=== PATIENT | male | born 1955 | race Caucasian/White ===

== ENCOUNTER 2019-04-03 14:03 | Outpatient (CLI) | payer OTHER, SELFPAY ==
--- NOTE | ~2019-04-03 | US_ITS ---
EXAMINATION: US carotid duplex BI DATE: 04/03/2019 15:38 INDICATION: Transient cerebral ischemia. Cerebral atherosclerosis. TECHNIQUE: Grayscale, color Doppler, and pulsed Doppler images of the cervical carotid arteries were obtained. The degree of vessel stenosis is placed in one of the following categories: normal, <50%, 5 0-69%, >=70% but less than near-occlusion, near-occlusion, or total occlusion. Note that percent sten osis relative to normal distal artery lumen diameter is indirectly measured from velocity measurement s as described by Duane, et al. Radiology 2003; [id number]. COMPARISON: None. FINDINGS: Tachycardia with irregularly irregular rhythm suggestive of atrial fibrillation. RIGHT: The right common carotid artery (CCA) peak systolic velocity (PSV) is 59 cm/s. The right internal car otid artery (ICA) PSV is 54 cm/s. The right ICA end-diastolic velocity (EDV) is 24 cm/s. The right IC A/CCA PSV ratio is 0.9. Grayscale and color Doppler images yield an estimate of <50% diameter reducti on from plaque in the ICA. The external carotid artery (ECA) PSV is 102 cm/s. There is antegrade flow in the right vertebral artery. LEFT: The left CCA PSV is 72 cm/s. The left ICA PSV is 71 cm/s. The left ICA EDV is 24 cm/s. The left ICA/C CA PSV ratio is 1.0. Grayscale and color Doppler images yield an estimate of <50% diameter reduction from plaque in the ICA. The ECA PSV is 100 cm/s. There is antegrade flow in the left vertebral artery . IMPRESSION: 1. <50% stenosis in the right internal carotid artery. 2. <50% stenosis in the left internal carotid artery. 3. Tachycardia with irregularly irregular cardiac rhythm suggestive atrial fibrillation. Correlate wi th EKG. Reviewed, dictated and finalized at location A. OMS VERIFIER IMPRESSION: 1. <50% stenosis in the right internal carotid artery. 2. <50% stenosis in the left internal carotid artery. 3. Tachycardia with irregularly irregular cardiac rhythm suggestive atrial fibr illation. Correlate with EKG.
--- NOTE | ~2019-04-03 | CT_ITS ---
EXAMINATION: CT brain wo con EXAM DATE: 04/03/2019 14:25 INDICATION: Transient ischemic attack TECHNIQUE: Spiral CT of the head was performed without contrast. Axial, coronal and sagittal images were reviewed. The dose-length product (DLP) for this examination was 605.33 mGy-cm. The exposure w as tailored according to patient size, and iterative reconstruction (ASIR) was used as additional dos e reduction technique. Comparison is made to prior examination from 05/23/2013. FINDINGS: There is no acute intraparenchymal hemorrhage. No evidence of intraparenchymal brain mass lesion. No evidence of acute infarction. Please note that initial head CT has limited sensitivity f or small or acute infarctions. There is mild periventricular and subcortical hypodensity, nonspecific but probably related to small vessel ischemic disease. There is mild prominence of the sulci and v entricles related to cerebral atrophy. There is intracranial carotid arteriosclerosis. There are n o extra-axial collections. There is no mass effect or midline shift. The orbits are unremarkable. Soft tissue is unremarkable. The visualized sinuses and mastoid air cells are well aerated. IMPRESSION: 1. No acute intracranial findings. 2. Chronic age related findings. Reviewed, dictated and finalized at location A. 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
== END 2019-04-03 14:04 | disposition home or self-care (01) ==
LOC: ANHIMG 14:07
PROVIDERS: PCP Family Medicine; Visit Provider Family Medicine
DX: I65.23 Occlusion and stenosis of bilateral carotid arteries (principal)
CPT/HCPCS: 70450; 93880

== ENCOUNTER 2019-08-01 09:36 | Outpatient (CLI) | payer OTHER, SELFPAY ==
--- NOTE | ~2019-08-01 | US_ITS ---
EXAMINATION: US aorta [facility] DATE: 08/01/2019 10:23 INDICATION: Abdominal aortic aneurysm screening. TECHNIQUE: Grayscale, color Doppler, and pulsed Doppler images of the aorta and common iliac arteries were obtained. COMPARISON: CT abdomen and pelvis 06/22/2013 FINDINGS: The aorta is normal in caliber. The distal abdominal aorta is not visible, but was normal in caliber on the prior CT. The right common iliac artery is normal in caliber. The left common iliac artery is normal in caliber. IMPRESSION: 1. No abdominal aortic aneurysm. Reviewed, dictated and finalized at location A.
== END 2019-08-01 09:37 | disposition home or self-care (01) ==
PROVIDERS: PCP Family Medicine; Visit Provider Family Medicine
DX: Z13.6 Encounter for screening for cardiovascular disorders (principal); Z87.891 Personal history of nicotine dependence
CPT/HCPCS: 76706

== ENCOUNTER 2019-09-22 01:12 | Outpatient (CLI) | payer OTHER, SELFPAY ==
[2019-09-22 18:11] LABS: SARS-CoV-2 RNA PCR Negative
== END 2019-09-22 01:13 | disposition home or self-care (01) ==
LOC: ANHCOVIDDT 01:12
PROVIDERS: PCP Family Medicine; Visit Provider Internal Medicine Gastroenterology
DX: Z01.812 Encounter for preprocedural laboratory examination (principal); Z11.59 Encounter for screening for other viral diseases
CPT/HCPCS: 87635; C9803; U0003

== ENCOUNTER 2019-09-25 01:45 | Day surgery (SDC) | payer OTHER, SELFPAY ==
[2019-09-18 10:48] VITALS: BMI 37.5
[2019-09-25 12:57] VITALS: BP 130/101; PULSE 96; RESP 20; TEMP 35.9; O2SAT 99; BMI 37.7
[2019-09-25 13:28] LABS: Glucose Point of Care 191 (65-105)
[2019-09-25] MEDS: LACTATED RINGERS 1,000 ML 150 ML IV CONT (13:30)
--- NOTE | 2019-09-25 13:32 | WPDANESEPPF ---
Anes - Initial Pre Proc Eval Procedure: Operation Date: 09/25/19 14:00 Proposed Procedures p Screening Colonoscopy - Mello Mckee MD Date/Time: 09/25/19 13:32 Surgeon: Mello Mckee MD Pre Op Diagnosis: neoplasm screening Patient Data Age: 64 Gender: M Height: 5 ft 11 in Weight: 122.7 kg Last Vital Signs Temp 96.7 F L 09/25/19 12:57 Pulse 96 09/25/19 12:57 Resp 20 09/25/19 12:57 BP 130/101 H 09/25/19 12:57 Pulse Ox 99 09/25/19 12:57 Allergies Allergy/AdvReac Type Severity Reaction Status Date / Time No Known Allergies Allergy Verified 09/25/19 12:54 Home Medications Medication Instructions Recorded Confirmed Type lisinopril 30 mg tablet 30 mg PO DAILY #90 tablet 01/04/19 09/18/19 Rx metformin 500 mg tablet,extended 2,000 mg PO DAILY #360 tablet 01/04/19 09/18/19 Rx release 24 hr omeprazole 40 mg capsule,delayed 40 mg PO DAILY #90 cap 01/04/19 09/18/19 Rx release rivaroxaban 20 mg tablet 20 mg PO DAILY #30 tablet 01/04/19 09/18/19 Rx sildenafil 100 mg tablet 100 mg PO DAILY PRN 03/22/19 09/18/19 History chlorthalidone 25 mg tablet 12.5 mg PO DAILY #45 tablet 04/09/19 09/18/19 Rx diltiazem HCl 240 mg 240 mg PO DAILY #90 cap 04/09/19 09/18/19 Rx capsule,extended release 24 hr empagliflozin 25 mg tablet 25 mg PO DAILY #90 tablet 07/10/19 09/18/19 Rx peg 3350-electrolytes 236 240 ml PO Q10M #4000 ml 09/14/19 Rx gram-22.74 gram-6.74 gram-5.86 gram solution Laboratory Tests 09/25/19 13:25 POC Capillary Glucose 191 mg/dl H mg/dl (65-105) Patient hx anesthesia problems: none Family hx anesthesia problems: none PMFSH Past Medical History Medical History (Updated 09/25/19 @ 13:31 by Ray London MD) Afib Essential (primary) hypertension History of stroke with current residual effects Type 2 diabetes mellitus with hyperglycemia, without long-term current use of insulin Surgical History Surgical History (Updated 03/23/19 @ 10:26 by Dipak Dumont MD) H/O hemorrhoidectomy Status post hernia repair Social History Social History (Updated 07/24/19 @ 10:30 by Catalina Cornejo) Smoking packs per day: 0.5 Smoking cigarettes per day: 10.0 Years smoked: 20 Smoking pack-years: 10.00 Smoking status: Former smoker Tobacco type: cigarettes Second hand tobacco smoke exposure: No Smoking end date: 02/14/07 Alcohol intake: never Substance use: never Substance use type: does not use Gender identity (if verbalized by the patient): Male Anes - Eval Final PreProcedure Day of Procedure 09/25/19 13:32 Patient weight: obese Heart: irregular rhythm Lungs: clear to auscultation Airway: Mallampati scale class III Neurological: alert and oriented Last oral intake: >/= 8 hours ASA classification: IV Anesthetic plan: proceed Anesthesia type and monitoring: general GIVS and standard monitoring Informed Consent: The patient's anesthetic plan and its attendant risks and benefits were discussed with the patient/family/POA. Questions were solicited and answers provided to the satisfaction of the patient/family/POA.
--- NOTE | 2019-09-25 13:56 | PM.HPGS ---
History of Present Illness History of Present Illness Consent: Risks, benefits, and alternatives have been discussed and questions answered. Patient agrees to proceed with procedure. Chief complaint: neoplasm screening Narrative: Asad Hess is a 64 year old male with colon polyps in 2013 Review of Systems Constitutional: Constitutional: Denies headache(s) and Denies weakness Eyes: Eyes: Denies blurry vision ENT: Reports Normal hearing present, Denies headache(s) and Denies neck pain Cardiovascular: Cardiovascular: Denies chest pain and Denies dyspnea Respiratory: Respiratory: Denies dyspnea Gastrointestinal: Gastrointestinal: Reports no additional gastrointestinal complaints Genitourinary: Genitourinary: Denies dysuria Musculoskeletal: Musculoskeletal: Denies neck pain Integumentary/Breasts: Skin/Breast: Denies dry skin Neurologic: Reports Normal hearing present, Denies headache(s) and Denies weakness Psychiatric: Psychiatric: Denies anxiety Endocrine: Endocrine: Denies change in body appearance Hematologic/Lymphatic: Hematologic/Lymphatic: Denies easy bleeding Allergic/Immunologic: Allergic/Immunologic: Denies urticaria PMF Past Medical History Medical History (Updated 09/25/19 @ 13:57 by Mello Mckee MD) Adenomatous colon polyp Afib Essential (primary) hypertension History of stroke with current residual effects Type 2 diabetes mellitus with hyperglycemia, without long-term current use of insulin Surgical History Surgical History (Updated 03/23/19 @ 10:26 by Dipak Dumont MD) H/O hemorrhoidectomy Status post hernia repair Social History Social History (Updated 07/24/19 @ 10:30 by Catalina Cornejo) Smoking packs per day: 0.5 Smoking cigarettes per day: 10.0 Years smoked: 20 Smoking pack-years: 10.00 Smoking status: Former smoker Tobacco type: cigarettes Second hand tobacco smoke exposure: No Smoking end date: 02/14/07 Alcohol intake: never Substance use: never Substance use type: does not use Gender identity (if verbalized by the patient): Male Meds Home Medications and Allergies Home Medications Medication Instructions Recorded Confirmed Type lisinopril 30 mg tablet 30 mg PO DAILY #90 tablet 01/04/19 09/18/19 Rx metformin 500 mg tablet,extended 2,000 mg PO DAILY #360 tablet 01/04/19 09/18/19 Rx release 24 hr omeprazole 40 mg capsule,delayed 40 mg PO DAILY #90 cap 01/04/19 09/18/19 Rx release rivaroxaban 20 mg tablet 20 mg PO DAILY #30 tablet 01/04/19 09/18/19 Rx sildenafil 100 mg tablet 100 mg PO DAILY PRN 03/22/19 09/18/19 History chlorthalidone 25 mg tablet 12.5 mg PO DAILY #45 tablet 04/09/19 09/18/19 Rx diltiazem HCl 240 mg 240 mg PO DAILY #90 cap 04/09/19 09/18/19 Rx capsule,extended release 24 hr empagliflozin 25 mg tablet 25 mg PO DAILY #90 tablet 07/10/19 09/18/19 Rx peg 3350-electrolytes 236 240 ml PO Q10M #4000 ml 09/14/19 Rx gram-22.74 gram-6.74 gram-5.86 gram solution Allergies Allergy/AdvReac Type Severity Reaction Status Date / Time No Known Allergies Allergy Verified 09/25/19 12:54 Vital Signs Vital Signs - 24 hr 09/25/19 12:57 Temperature 96.7 F L Pulse Rate 96 Respiratory Rate 20 Blood Pressure 130/101 H Pulse Oximetry 99 Exam Const: General: comfortable and no acute distress HENMT: General nose exam: Normal nares present Eyes: General: appearance normal, both eyes and all related structures Neck: Neck: no JVD Resp: Auscultation: clear to auscultation bilaterally Cardio: Rate: regular rate Rhythm: regular rhythm GI: Inspection: non-distended GI Palp: Yes Soft to palpation Skin: General skin exam: normal color Neuro: General: gait normal Speech: normal speech Extrem: General: normal to inspection Psych: Mental Status: mental status grossly normal Assessment and Plan Assessment and plan (1) Adenomatous colon polyp: Code(s): D12.6 - Benign
[2019-09-25 14:25] VITALS: BP 99/72; PULSE 105; RESP 15; O2SAT 94
[2019-09-25 14:35] VITALS: BP 129/69; PULSE 102; RESP 24; O2SAT 96
[2019-09-25 14:45] VITALS: BP 103/72; PULSE 84; RESP 20; O2SAT 99
== END 2019-09-25 15:04 | disposition home or self-care (01) ==
PROVIDERS: PCP Family Medicine; Visit Provider Internal Medicine Gastroenterology
PROC: 0DJD8ZZ Inspection of Lower Intestinal Tract, Via Natural or Artificial Opening Endoscopic (ICD-10-PCS; CPT 45378; principal; 2019-09-25 14:00)
DX: Z12.11 Encounter for screening for malignant neoplasm of colon (principal); D12.0 Benign neoplasm of cecum; D12.2 Benign neoplasm of ascending colon; D12.4 Benign neoplasm of descending colon; K63.5 Polyp of colon; K57.30 Diverticulosis of large intestine without perforation or abscess without bleeding; I48.91 Unspecified atrial fibrillation; I10 Essential (primary) hypertension; E11.9 Type 2 diabetes mellitus without complications; I69.90 Unspecified sequelae of unspecified cerebrovascular disease; Z79.01 Long term (current) use of anticoagulants; Z79.84 Long term (current) use of oral hypoglycemic drugs; Z87.891 Personal history of nicotine dependence; E66.9 Obesity, unspecified; Z68.37 Body mass index [BMI] 37.0-37.9, adult
CPT/HCPCS: 45385; 45380; 88305; J2704; J7120

== ENCOUNTER 2022-11-02 04:04 | Day surgery (SDC) | payer MEDICARE, SELFPAY ==
[2022-10-27 12:23] VITALS: BMI 33.7
[2022-11-02 08:24] VITALS: BP 124/89; PULSE 82; RESP 18; TEMP 36.7; O2SAT 98
[2022-11-02] MEDS: LACTATED RINGERS 1,000 ML 150 ML IV CONT (08:40)
[2022-11-02 08:46] LABS: Glucose Point of Care 220 mg/dl (65-105)
--- NOTE | 2022-11-02 08:55 | WPDANESEPPF ---
Anes - Initial Pre Proc Eval Procedure: Operation Date: 11/02/22 09:30 Proposed Procedures p Colonoscopy - Mello Mckee MD Date/Time: 11/02/22 08:55 Surgeon: Mello Mckee MD Pre Op Diagnosis: Hx of colon polyps Patient Data Age: 67 Gender: M Height: 1.8 m Weight: 114.7 kg Last Vital Signs Temp 98.1 F 11/02/22 08:24 Pulse 82 11/02/22 08:24 Resp 18 11/02/22 08:24 BP 124/89 11/02/22 08:24 Pulse Ox 98 11/02/22 08:24 O2 Del Method Room Air 11/02/22 08:24 Allergies Allergy/AdvReac Type Severity Reaction Status Date / Time No Known Allergies Allergy Verified 11/02/22 08:22 Home Medications Medication Instructions Recorded Confirmed Type rivaroxaban 20 mg tablet (Xarelto) 20 mg PO DAILY #90 tabs 09/29/20 10/27/22 Rx lisinopril 30 mg tablet See Rx Instructions .Route 04/01/22 10/27/22 Rx .COMPLEX #90 tabs metformin 500 mg tablet,extended See Rx Instructions .Route 04/01/22 10/27/22 Rx release 24 hr .COMPLEX #360 tabs metoprolol tartrate 50 mg tablet See Rx Instructions .Route 09/30/22 10/27/22 Rx .COMPLEX #180 tabs linagliptin 5 mg tablet (Tradjenta) 5 mg PO QAM #90 tabs 10/04/22 10/27/22 Rx empagliflozin 25 mg tablet 25 mg PO DAILY #90 tabs 10/12/22 10/27/22 Rx (Jardiance) omeprazole 40 mg capsule,delayed 40 mg PO DAILY 10/27/22 10/27/22 History release sildenafil 100 mg tablet (Viagra) 100 mg PO DAILY PRN Erectile 10/27/22 10/27/22 History Dysfunction Laboratory Tests 11/02/22 08:37 POC Capillary Glucose 220 H mg/dl (65-105) Patient hx anesthesia problems: none Family hx anesthesia problems: none Results Review: All pre-operative results and documents have been reviewed as part of the pre-operative evaluation. [facility] Past Medical History Medical History Adenomatous colon polyp Afib Essential (primary) hypertension History of stroke with current residual effects Obesity Type 2 diabetes mellitus with hyperglycemia, without long-term current use of insulin Surgical History Surgical History H/O hemorrhoidectomy Status post hernia repair Family History Family History Father Carcinoma of colon Cerebrovascular accident Family history of primary malignant neoplasm of liver Mother Family history of dementia Sibling Family history of atrial fibrillation Other Diabetes mellitus Hypertension Social History Social History (Updated 10/04/22 @ 10:08 by Pham Mahmood) Social History: Single Smoking packs per day: 0.5 Smoking cigarettes per day: 10.0 Years smoked: 20 Smoking pack-years: 10.00 Smoking status: Former smoker Tobacco type: cigarettes Second hand tobacco smoke exposure: No Smoking end date: 02/14/07 Alcohol intake: former Substance use: current Substance use type: marijuana Other substance usage details: OCC. Lack of Transportation: No Lack of Food: Never True Current Housing: I Have Housing Concerned About Future Housing: No Difficulty Paying Gas/Electric Bills: No Difficulty Paying for Meds: No Currently Unemployed: YES Education: Decline to Answer Difficulty w/ Childcare or Family Care: No Living arrangements: with family Occupation/Education: retired Gender identity (if verbalized by the patient): Male Sexual Orientation (if Verbalized by the Patient): Straight or Heterosexual Spiritual care concerns: No Anes - Eval Final PreProcedure Day of Procedure 11/02/22 08:55 Patient weight: obese Heart: regular rate and rhythm Lungs: clear to auscultation Airway: Mallampati scale class II Neurological: alert and oriented Last oral intake: >/= 8 hours ASA classification: III Emergent: no Anesthetic plan: proceed Anesthesia type and monitoring: general GIVS and sta
--- NOTE | 2022-11-02 09:11 | PM.HPGS ---
History of Present Illness History of Present Illness Consent: Risks, benefits, and alternatives have been discussed and questions answered. Patient agrees to proceed with procedure. Chief complaint: Hx of colon polyps Narrative: Asad Hess is a 67 year old male with colon polyps in 2020 Review of Systems Constitutional: Constitutional: Denies headache(s) and Denies weakness Eyes: Eyes: Denies blurry vision ENT: Reports Normal hearing present, Denies headache(s) and Denies neck pain Cardiovascular: Cardiovascular: Denies chest pain and Denies dyspnea Respiratory: Respiratory: Denies dyspnea Gastrointestinal: Gastrointestinal: Reports no additional gastrointestinal complaints Genitourinary: Genitourinary: Denies dysuria Musculoskeletal: Musculoskeletal: Denies neck pain Integumentary/Breasts: Skin/Breast: Denies dry skin Neurologic: Reports Normal hearing present, Denies headache(s) and Denies weakness Psychiatric: Psychiatric: Denies anxiety Endocrine: Endocrine: Denies change in body appearance Hematologic/Lymphatic: Hematologic/Lymphatic: Denies easy bleeding Allergic/Immunologic: Allergic/Immunologic: Denies urticaria PMFSH Past Medical History Medical History Adenomatous colon polyp Afib Essential (primary) hypertension History of stroke with current residual effects Obesity Type 2 diabetes mellitus with hyperglycemia, without long-term current use of insulin Surgical History Surgical History H/O hemorrhoidectomy Status post hernia repair Family History Family History Father Carcinoma of colon Cerebrovascular accident Family history of primary malignant neoplasm of liver Mother Family history of dementia Sibling Family history of atrial fibrillation Other Diabetes mellitus Hypertension Social History Social History (Updated 10/04/22 @ 10:08 by Pham Mahmood) Social History: Single Smoking packs per day: 0.5 Smoking cigarettes per day: 10.0 Years smoked: 20 Smoking pack-years: 10.00 Smoking status: Former smoker Tobacco type: cigarettes Second hand tobacco smoke exposure: No Smoking end date: 02/14/07 Alcohol intake: former Substance use: current Substance use type: marijuana Other substance usage details: OCC. Lack of Transportation: No Lack of Food: Never True Current Housing: I Have Housing Concerned About Future Housing: No Difficulty Paying Gas/Electric Bills: No Difficulty Paying for Meds: No Currently Unemployed: YES Education: Decline to Answer Difficulty w/ Childcare or Family Care: No Living arrangements: with family Occupation/Education: retired Gender identity (if verbalized by the patient): Male Sexual Orientation (if Verbalized by the Patient): Straight or Heterosexual Spiritual care concerns: No Meds Home Medications and Allergies Home Medications Medication Instructions Recorded Confirmed Type rivaroxaban 20 mg tablet (Xarelto) 20 mg PO DAILY #90 tabs 09/29/20 10/27/22 Rx lisinopril 30 mg tablet See Rx Instructions .Route 04/01/22 10/27/22 Rx .COMPLEX #90 tabs metformin 500 mg tablet,extended See Rx Instructions .Route 04/01/22 10/27/22 Rx release 24 hr .COMPLEX #360 tabs metoprolol tartrate 50 mg tablet See Rx Instructions .Route 09/30/22 10/27/22 Rx .COMPLEX #180 tabs linagliptin 5 mg tablet (Tradjenta) 5 mg PO QAM #90 tabs 10/04/22 10/27/22 Rx empagliflozin 25 mg tablet 25 mg PO DAILY #90 tabs 10/12/22 10/27/22 Rx (Jardiance) omeprazole 40 mg capsule,delayed 40 mg PO DAILY 10/27/22 10/27/22 History release sildenafil 100 mg tablet (Viagra) 100 mg PO DAILY PRN Erectile 10/27/22 10/27/22 History Dysfunction Allergies Allergy/AdvReac Type Severity Reaction Status Date / Time No Known Allergies Allergy
[2022-11-02 09:32] VITALS: BP 89/58; PULSE 69; RESP 14; O2SAT 93
[2022-11-02 09:42] VITALS: BP 116/77; PULSE 75; RESP 20; O2SAT 97
[2022-11-02 09:52] VITALS: BP 110/79; PULSE 76; RESP 17; O2SAT 97
== END 2022-11-02 10:04 | disposition home or self-care (01) ==
PROVIDERS: PCP Family Medicine; Visit Provider Internal Medicine Gastroenterology
PROC: 0DJD8ZZ Inspection of Lower Intestinal Tract, Via Natural or Artificial Opening Endoscopic (ICD-10-PCS; CPT 45378; principal; 2022-11-02 09:30)
DX: Z12.11 Encounter for screening for malignant neoplasm of colon (principal); D12.4 Benign neoplasm of descending colon; K63.5 Polyp of colon; K57.30 Diverticulosis of large intestine without perforation or abscess without bleeding; K64.8 Other hemorrhoids; I48.91 Unspecified atrial fibrillation; I10 Essential (primary) hypertension; E11.9 Type 2 diabetes mellitus without complications; Z86.73 Personal history of transient ischemic attack (TIA), and cerebral infarction without residual deficits; E66.9 Obesity, unspecified; Z68.35 Body mass index [BMI] 35.0-35.9, adult; Z87.891 Personal history of nicotine dependence; Z79.84 Long term (current) use of oral hypoglycemic drugs; Z79.01 Long term (current) use of anticoagulants; F12.90 Cannabis use, unspecified, uncomplicated
CPT/HCPCS: 45385; 82948; 88305; J2704; J7120